=== PATIENT | female | born 1980 | race Caucasian/White ===

== ENCOUNTER 2025-06-19 11:05 | Outpatient (CLI) | payer OTHER, SELFPAY ==
--- OUTSIDE RECORDS SUMMARY | 2025-06-19 10:30 | XMS_ITS | Encounter Summary ---
Author Organization [facility] Address [address] [place] [address] Care Team Providers Care Erp Implementation Consultant Name Role Phone Unavailable Primary Care Provider Unavailabl e Reason for Referral * Eval and Treat (Routine) - Open Specialty Diagnoses / Procedures Referred By Contac t Referred To Contact Oncology Diagnoses Malignant neoplasm of central portion of right breast in female, estrogen receptor negative (CMS/HCC) Procedures SC OFFICE/OUTPATIENT ESTABLISHED MOD MDM 30 MIN SC OFFICE/OUTPATIENT NEW MODERATE MDM 45 MINUTES Favian Barriga MD [address] [facility] [address] [place] [phone] Phone: tel: fax: Referral ID Status Reason Start Date Expiration Date Visits Re quested Visits Authorized [id number] Open 06/19/2025 06/20/2026 1 1 * PET Scan (Routine) - Closed Specialty Diagnoses / Procedures Referred By Contac t Referred To Contact Diagnoses Malignant neoplasm of central portion of right breast in female, estrogen receptor negative (CMS/HCC) Procedures PET TUMOR OR INFECTION IMG W CT SKB Favian Mcleod MD [address] [facility] [address] [place] [phone] Phone: tel: fax: [place] [phone] Referral ID Status Reason Start Date Expiration Date V isits Requested Visits Authorized [id number] Closed STL CTS 06/19/2025 07/20/2026 1 1 Encounter Details Date Type Department Care Team (Late st Contact Info) Description 06/19/2025 10:30 AM CDT Office Visit [facility] Oncology and Hematology - [place] [address] [place] [address] Favian Barriga MD [address] [facility] [address] [place] [address] Malignant neoplasm of central portion of right breast in female, estrogen receptor negative (CMS/HCC) (Primary Dx); Neuropathy due to chemotherapeutic drug Social History Tobacco Use Types Packs/Day Years Used Date Smoking Tobacco: Never Tobacco Cessation:Counseling Given: Not Answered Alcohol Use Standard Drinks/Week Comments Not Currently 0 (1 standard drink = 0.6 oz pur e alcohol) very rarely. Feeling Safe Answer Date Recorded Within the last year, have y ou been afraid of your partner or ex-partner? No 12/12/2024 Emotionally Abused Not on file 12/12/2024 Within the last year, have y ou been kicked, hit, slapped, or otherwise physically hurt by your partner or ex-partner? No 12/12/2024 Sexually Abused Not on file 12/12/2024 Feeling Safe Answer Date Recorded Are you in a relationship wi th someone who hurts you emotionally and/or physically? 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 Gender Identity Not on file Sexual Orientation Not on file documented as of this encounter Last Filed Vital Signs Vital Sign Reading Time Taken Comments Blood Pressure 131/77 06/19/2025 10:01 AM CDT Pulse 68 06/19/2025 10:01 AM CDT Temperature 36.3 C (97.3 F) 06/19/2025 10:01 AM CDT Respiratory Rate 15 06/19/2025 10:01 AM CDT Oxygen Saturation 97% 06/19/2025 10:01 AM CDT Inhaled Oxygen Concentration - - Weight 112.5 kg (248 lb) 06/19/2025 10:01 AM CDT Height 147.3 cm (4' 10) 06/19/2025 10:01 AM CDT Body Mass Index 51.83 06/19/2025 10:01 AM CDT documented in this encounter Plan of Treatment Upcoming Encounters Date Type Department Care Team (Late st Contact Info) Description 07/22/2025 11:30 AM CDT Appointment [facility] Radiation Therapy [address] [place] [address] Sung Aguilar MD [address] 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 STOCK CAR DRIVER Office Visit [facility] Breast Surgery Girish Zavaleta [address] [facility] [address] [place] [address] [place] [address] [facility] [address] [place] [address] Pending Results Name Type Priority Associated Diagnoses Date /Time TEMPUS XT DNA AND RNA Lab Routine Malignant neoplasm of central portion of right breast in female, estrogen receptor negative (CMS/HCC) 06/19/2025 10:38 AM CDT TEMPUS XT NORMAL BLOOD Lab Routine Malignant neoplasm of central portion of right breast in female, estrogen receptor negative (CMS/HCC) 06/19/2025 10:38 AM CDT Scheduled Orders Name Type Priority Associated Diagnoses Orde r Schedule CBC WITH DIFFERENTIAL Lab Stat Malignant neoplasm of central portion of right breast in female, estrogen receptor negative (CMS/HCC) Expected: 06/19/2025, Expires: 06/19/2026 COMPREHENSIVE METABOLIC PANEL Lab Stat Malignant neoplasm of central portion of right breast in female, estrogen receptor negative (CMS/HCC) Expected: 06/19/2025, Expires: 06/19/2026 CANCER ANTIGEN 15-3 Lab Routine Malignant neoplasm of central portion of right breast in female, estrogen receptor negative (CMS/HCC) Expected: 06/19/2025, Expires: 06/19/2026 MISCELLANEOUS LAB TEST Lab Routine Malignant neoplasm of central portion of right breast in female, estrogen receptor negative (CMS/HCC) Expected: 06/19/2025, Expires: 06/19/2026 TEMPUS XT DNA AND RNA Lab Routine Malignant neoplasm of central portion of right breast in female, estrogen receptor negative (CMS/HCC) Expected: 06/19/2025, Expires: 06/19/2026 TEMPUS XF Lab Routine Malignant neoplasm of central portion of right breast in female, estrogen receptor negative (CMS/HCC) Expected: 06/19/2025, Expires: 06/19/2026 TEMPUS XT DNA AND RNA SOLID TUMOR Lab Routine Malignant neoplasm of central portion of right breast in female, estrogen receptor negative (CMS/HCC) Ordered: 06/19/2025 PET TUMOR OR INFECTION IMG W CT SKB [facility] Imaging Routine Malignant neoplasm of central portion of right breast in female, estrogen receptor negative (CMS/HCC) Expected: 06/19/2025, Expires: 06/19/2026 Scheduled Referrals Name Type Priority Associated Diagnoses Orde r Schedule AMB REFERRAL TO CHEMO TEACHING Outpatient Referral Routine Malignant neoplasm of central portion of right breast in female, estrogen receptor negative (CMS/HCC) Ordered: 06/19/2025 documented as of this encounter Visit Diagnoses Diagnosis Malignant neoplasm of central portion of right breast in female, estrogen receptor negative (CMS/HCC)- Primary Neuropathy due to chemotherapeutic drug Polyneuropathy due to drugs documented in this encounter
[2025-06-19 11:20] LABS: Hematocrit 34.1 % (37.0-47.0); Hemoglobin 11.1 g/dL (12.0-15.0); Immature Granulocyte Percent A 0.3 % (0-0.5); Lymphocytes Absolute Auto 1.68 K/mm3 (0.9-3.2); Mean Corpuscular HGB Conc 32.6 g/dl (32-36); Mean Corpuscular Hemoglobin 30.1 pg (26-34); Mean Corpuscular Volume 92.4 fl (80-100); Nucleated Red Blood Cells Absolute Auto 0.000 K/mm3 (0.0-0.012); Nucleated Red Blood Cells Perc 0.0 % (0.0-0.2); Platelet Count Result 302 k/mm3 (150-375); Red Blood Count 3.69 M/mm3 (4.2-5.4); White Blood Count 7.2 K/mm3 (4.5-10.0)
--- OUTSIDE RECORDS SUMMARY | 2025-06-19 11:50 | XMS_ITS | Encounter Summary ---
Author Organization [facility] Address [address] [place] [address] Care Team Providers Care Storage Engineer Name Role Phone Unavailable Primary Care Provider Unavailabl e Reason for Visit * Reason Onset Date Comments Medication Refill 06/12/2025 Encounter Details Date Type Department Care Team (Late st Contact Info) Description 06/12/2025 Refill [facility]3] Neurosurgery - Medical [place] [address] [facility] [address] [place] [address] Adams Shaw PA [address] [facility] [address] [place] [address] Hypertension, unspecified type Social History Tobacco Use Types Packs/Day Years Used Date Smoking Tobacco: Never Alcohol Use Standard Drinks/Week Comments Not Currently [...] on file 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 [facility] [address] [place] [address] 12/18/2025 9:30 AM WIRE HARNESS ASSEMBLER Office Visit [facility] Breast Surgery Girsih Zavaleta [address] [facility] [address] [place] [address] [place] [address] [facility] [address] [place] [address] documented as of this encounter Visit Diagnoses Diagnosis Hypertension, unspecified type documented in this encounter
--- OUTSIDE RECORDS SUMMARY | 2025-06-19 11:50 | XMS_ITS | Encounter Summary ---
Author Organization [facility] Address 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 [facility] [address] [place] [address] 12/18/2025 9:30 AM SLEEPING BAG FILLER Office Visit [facility] Breast Surgery Girish Zavaleta [address] [facility] [address] [place] [address] [place] [address] [facility] [address] [place] [address] documented as of this encounter Visit Diagnoses Diagnosis Hypertension, unspecified type documented in this encounter
--- OUTSIDE RECORDS SUMMARY | 2025-06-19 11:52 | XMS_ITS | Encounter Summary ---
Author Organization [facility] Address [address] [place] [address] Care Team Providers Care Conventional Underwriter Name Role Phone Marlien Rojas [facility] Primary Care Provider [phone] [facility] Un[facility] Pau Abdalla DO Unavailable + Encounter Details Date Type Department Care Team (Late st Contact Info) Description 07/15/2020 Abstract [facility] [address] [place], [place] [id number] Marline Rojas [facility] [address] [place], [place] [id number] Social History Tobacco Use Types Packs/Day Years Used Date Smoking Tobacco: Never Smokeless Tobacco: Never Alcohol Use Standard Drinks/Week Comments No 0 (1 standard drink = 0.6 oz pur e alcohol) AUDIT-C Answer Date Recorded Frequency of Alcohol Consumption Never 10/11/2018 Average Number of Drinks Not on file 018 Frequency of Binge Drinking Not on file 09/29 Comments No Sex and Gender Information Value Date Recorded Sex Assigned at Female 02/27/2025 6:06 PM CDT Legal Sex Female 6:01 PM CDT Gender Identity Female 02/27/2025 6:06 PM CDT Sexual Orientation Not on file COVID-19 Exposure Response Date Recorded In the last month, have you been in contact with someone who was confirmed or suspected to have Coronavirus / COVID-19? No / Unsure 06/26/2020 9:48 AM CDT documented as of this encounter Plan of Treatment Not on file documented as of this encounter Procedures Procedure Name Priority Date/Time Associated Diagnosis Comments HEALTH FAIR WITH LIPID Routine 12/25/2019 documented in this encounter Results * (ABNORMAL) HEALTH FAIR WITH LIPID (12/25/2019) WBC 7.9 RBC 4.2 HGB 10.6(A) 12.0 - 16.0 HCT 34.9(A) 36.0 - 46.0 MCV 83.1 MCH 25.2(A) 26.0 - 34.0 MCHC 30.4(A) 31.0 - 37.0 RDW 15.4(A) 11.6 - 14.8 PLT 343 GLUCOSE 102(A) 70 - 99 mg/dL SODIUM S/P/B 142 POTASSIUM S/P/B 4.2 CHLORIDE S/P/B 105 CO2 28 BUN 17 CREATININE S/P/B 0.8 0.5 - 1.0 TOTAL PROTEIN S/P/B 7.1 CALCIUM S/P/B 8.5 ALBUMIN S/P/B 3.3(A) 3.5 - 5.0 ALKALINE PHOSPHATASE S/P/B 129 AST 27 ALT 38 TSH 7.219(A) 0.358 - 3.740 CHOLESTEROL 171 TRIGLYCERIDES 93 HDL 49(A) 0 - 40 LDL (CALCULATED) 103 CHOL/HDL RISK FACTOR 3 12/25/2019 us Doc [facility] Abstract LABORATORY Final Result documented in this encounter Visit Diagnoses Not on filedocumented in this encounter Additional Health Concerns Infection Onset Date Last Indicated Resolved Time COVID-19 Rule Out 06/11/2021 06/11/2021 06/12/2021 3:47 AM CDT COVID-19 Rule Out 07/08/2022 07/08/2022 07/12/2022 9:05 AM CDT documented as of this encounter Care Teams Conventional Underwriter Relationship Specialty Start Date End Date Marline Rojas FNP [address] [place] [address] [place] [address] PCP - General FAMILY PRACTICE 09/15/18 [place] [address] [address] [facility] [address] [place] [address] SURGICAL ONCOLOGY 07/07/24 Pau Abdalla DO [address] [place] [address] INTERNAL MEDICINE 07/07/24 documented as of this encounter
--- OUTSIDE RECORDS SUMMARY | 2025-06-19 11:52 | XMS_ITS ---
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 03/15/2025 Malignant neoplasm of right breast, stage 2 06/2025 Normocytic anemia 03/07/2025 Palliative care encounter 03/06/2025 Neoplastic malignant related fatigue 03/06/2025 Nausea 03/06/2025 Frontal headache 03/06/2025 Drug-induced constipation 03/06/2025 Grief reaction 03/06/2025 Steroid-induced hyperglycemia 03/06/2025 Vasogenic brain edema 03/05/2025 Right frontal lobe mass 03/05/2025 DM (diabetes mellitus), type 2 03/05/2025 Iron deficiency anemia 01/17/2024 Malignant neoplasm of centra l portion of right breast in female, estrogen receptor negative 12/29/2023 Cancer Staging:Clinical:Stage IIB(cT2, cN0, cM0, G3, ER-, AZ-, HER2-) - Signed by Pau Abdalla DO on 01/04/2024 Overview (12/12/2024): Stage: Clinical T2N0; [id number] Date of diagnosis: 12/22/2022 Diagnosis: RIGHT IDC, grade 3 ER(-) AZ(-) Her 2(-) Post chemo: no residual cancer, 0/3 LN Surgeon: [facility] Surgery: 07/24/2024 right TM/SLN, left TM Medical Oncologist: Hugo --> [facility] Chemotherapy: neoadjuvant Severe hypersensitivity reaction to C1D1 of paclitaxel. Abraxane substituted for paclitaxel going forward. 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 COVID-19 vaccine dose declined 10/08/2021 PCOS (polycystic ovarian syndrome) 10/08/2021 Hypertension 10/11/2018 AMA (advanced maternal age) multigravida 35+ Maternal chronic hypertension 2016 Obesity affecting in third trimester 0 2016 Encounter for other specified screenin g 09/16/2016 Vitamin D deficiency 07/09/2015 Overview (12/07/2023): Date Onset: 07/09/2015 Family history of ovarian cancer 06/12/2015 Overview (12/07/2023): Date Onset: 06/12/2015 Metabolic syndrome 07/25/2014 Overview (12/07/2023): Date Onset: 07/25/2014 Hypothyroidism 05/10/2013 Obesity 05/10/2013 Overview (12/07/2023): Date Onset: 11/09/2012 Current Treatment and Therapy Plans No current plan information found. Past Treatment and Therapy Plans ONCOLOGY THERAPY PLAN Plan Name Start Date Discontinue Date Treatment Medications Discontinue Reason Plan Provider OP ONC IRON SUCROSE (VENOFER) 300 MG IVPB 2 TIMES PER WEEK X 3 DOSES 01/19/2024 06/26/2024 No medications scheduled. Therapy Complete Pau Laughlin, ONCOLOGY TREATMENT Plan Name Start Date Discontinue Date Treatment Medications Discontinue Reason Plan Provider Cycles OP ONC BREAST_ADJUVA NT_PEMBROLIZU MAB_EVERY 21 DAYS 024 02/13/2025 pembrolizumab (KEYTRUDA) Therapy Complete Pau Galan, 9 of 9 cycles started OP ONC BREAST_PEMBRO LIZUMAB DAY 1_protein bound PACLITAXEL AND CARBOPLATIN WEEKLY_EVERY 21 DAYS X 4 CYCLES FOLLOWED BY PEMBROLIZUMAB _AC_EVERY 21 DAYS X 4 CYCLES 01/11/20 24 08/07/2024 CARBOplatin (PARAPLATIN) IVPBcycloPHOSphamide (200 mg/mL) IVPBDOXOrubicin (ADRIAMYCIN)PACLitaxel (TAXOL) IVPBPACLitaxel-protein bound (ABRAXANE) IVPBpembrolizumab (KEYTRUDA) Therapy Complete Pau Galan, 8 of 8 cycles started Lifetime Dose Tracking * Chemical Lifetime Dose Automatic Entry Manual Entr y doxorubicin 248.285 mg/m2 (520 mg) 248.285 mg/m2 (520 mg) 0 mg/m2 (0 mg) Effective Dose 25.99 mSv 25.99 mSv 0 mSv Total DLP 2,293.58 DLP 2,293.58 DLP 0 DLP CTDIvol Max 33.23 mGy 33.23 mGy 0 mGy
--- OUTSIDE RECORDS SUMMARY | 2025-06-19 11:52 | XMS_ITS | Clinical Summary ---
Author Organization [facility] [place] Address [address] [place] [address] Phone Care Team Providers Care Cook Soup Name Role Phone Unavailable Primary Care Provider Unavailabl e Allergies Active Allergy Reactions Criticality Noted Date Comments Paclitaxel Other (See Comments) High 01/12/2024 Severe hypersensitivity reaction with first infusion. Do not rechallenge. Medications metFORMIN (GLUCOPHAGE) 500 mg tablet Take 500 mg by mouth. Active levETIRAcetam (KEPPRA) 1,000 mg tablet Take 1 Tablet (1,000 mg) by mouth 2 times daily. 60 Tablet 6 03/27/20 25 2025 Active amLODIPine (NORVASC) 5 mg tabletIndications:H ypertension, unspecified type TAKE 1 TABLET BY MOUTH EVERY DAY 30 Tablet 05/08/20 25 Active levothyroxine 100 mcg tabletIndications:H ypothyroidism, unspecified type TAKE 1 TABLET (100 MCG) BY MOUTH DAILY IN THE MORNING 90 Tablet 1 05/21/20 25 Active gabapentin (NEURONTIN) 300 mg capsuleIndications: Neuropathy due to chemotherapeutic drug Take 1 Capsule (300 mg) by mouth daily at bedtime. 30 Capsule 3 06/19/20 25 Active DULoxetine (CYMBALTA) 60 mg Capsule, Delayed Release(E.C.)Indica tions:Neuropathy due to chemotherapeutic drug Take 1 Capsule (60 mg) by mouth daily. 90 Capsule 1 06/19/20 25 Active DULoxetine (CYMBALTA) 60 mg Capsule, Delayed Release(E.C.)Indica tions:Neuropathy due to chemotherapeutic drug TAKE 1 CAPSULE BY MOUTH EVERY DAY 90 Capsule 1 11/29/19 25 2024 Discontinued(R eorder) gabapentin (NEURONTIN) 300 mg capsuleIndications: Neuropathy due to chemotherapeutic drug TAKE 1 CAPSULE (300 MG) BY MOUTH DAILY AT BEDTIME 30 Capsule 3 02/13/20 25 2024 Discontinued(R eorder) levothyroxine 100 mcg tabletIndications:H ypothyroidism, unspecified type Take 1 Tablet (100 mcg) by mouth daily in the morning. 30 Tablet 4 02/19/20 25 2024 Discontinued Active Problems Problem Noted Date Diagnosed Date [...] Cancer Staging:Clinical:Stage IIB(cT2, cN0, cM0, G3, ER-, LA-, HER2-) - Signed by Pau Abdalla DO on 01/04/2024 Overview (12/12/2024): Stage: Clinical T2N0; [id number] Date of diagnosis: 12/22/2022 Diagnosis: RIGHT IDC, grade 3 ER(-) LA(-) Her 2(-) Post chemo: no residual cancer, 0/3 LN Surgeon: Bhumi Surgery: 07/24/2024 right TM/SLN, left TM Medical [...] Obesity 05/10/2013 Overview (12/07/2023): Date Onset: 11/09/2012 Encounters Date Type Department Care Team Description 06/19/2025 10:30 AM CDT Office Visit [facility] Oncology and Hematology [facility] [address] [place] [phone] Favian Barriga MD Malignant neoplasm of central portion of right breast in female, estrogen receptor negative (CMS/HCC) (Primary Dx); Neuropathy due to chemotherapeutic drug 06/12/2025 [facility] Neurosurgery Medical [place] [address] [facility] [address] [place] [address] Adams Shaw PA Hypertension, unspecified type 06/10/2025 [facility] [address] [facility] [address] [place] [address] Mandy Echols PA-C Hypertension, unspecified type 06/06/2025 [facility] - [facility] [address] [place] [address] Pau Abdalla, DO Neuropathy due to chemotherapeutic drug 06/06/2025 [facility] [address] [facility] [address] [place] [address] Marge Guzman, LAW Neuropathy due to chemotherapeutic drug 06/04/2025 External Device Data STL ABSTRACTION Provider, Abstract 06/01/2025 [facility] [address] [facility] [address] [place] [address] Mandy Echols PA-C Hypertension, unspecified type 05/21/2025 [facility] ONCOLOGY AND [facility]EMATOLOGY-[facility] [address] [place] [address] Marge Guzman, PRODUCTION CONTROL ANALYST Hypothyroidism, unspecified type 05/20/2025 External Device Data STL ABSTRACTION Provider, Abstract 05/20/2025 External Device Data STL ABSTRACTION Provider, Abstract 05/07/2025 [facility] [address] [facility] [address] [place] [address] Adams Shaw PA Hypertension, unspecified type 04/26/2025 9:58 AM CDT - 04/26/2025 11:59 PM CDT Hospital [facility] MRI [address] [place] [address] Erica Kamara PA Discharge Disposition: Home or Self Care 04/16/2025 11:30 AM CDT Office Visit [facility] [address] [facility] [address] [place] [address] Norris Marcus MD Postoperative follow-up (Primary Dx); S/P craniotomy 04/16/2025 External Device Data STL ABSTRACTION Provider, Abstract 04/15/2025 External Device Data STL ABSTRACTION Provider, Abstract 04/15/2025 External Device Data STL ABSTRACTION Provider, Abstract 04/14/2025 12:15 PM CDT - 04/14/2025 11:59 PM CDT Hospital Encounter [facility] Radiation Therapy [address] [place] [address] Sung Aguilar MD Discharge Disposition: Home or Self Care 04/14/2025 Refill [facility] [address] [facility] [address] [place] [address] Moni Lopez PA-C Hypertension, unspecified type 04/11/2025 8:40 AM CDT - 04/11/2025 11:59 PM CDT Hospital Encounter [facility] Radiation Therapy [address] [place] [address] Sung Aguilar MD Discharge Disposition: Home or Self Care 04/09/2025 8:00 AM CDT - 04/09/2025 11:59 PM CDT Hospital Encounter [facility] Radiation Therapy [address] [place] [address] Sung Aguilar MD Discharge Disposition: Home or Self Care 04/07/2025 9:33 AM CDT - 04/07/2025 11:59 PM CDT Hospital Encounter [facility] Radiation Therapy [address] [place] [address] Sung Aguilar MD Discharge Disposition: Home or Self Care 04/03/2025 8:07 AM CDT - 04/03/2025 11:59 PM CDT Hospital Encounter [facility] Radiation Therapy [address] [place] [address] Sung Aguilar MD Discharge Disposition: Home or Self Care 04/02/2025 6:00 AM CDT - 04/02/2025 11:59 PM CDT Hospital Encounter [facility] Radiation Therapy [address] [place] [address] Discharge Disposition: Home or Self Care 04/02/2025 Orders Only [facility] Radiation Therapy [address] [place] [address] Sung Aguilar MD 03/27/2025 9:16 AM CDT - 03/27/2025 11:59 PM CDT Hospital Encounter [facility] MRI [address] [place] [address] Sung Aguilar MD Discharge Disposition: Home or Self Care 03/27/2025 8:45 AM CDT - 03/27/2025 11:59 PM CDT Hospital Encounter [facility] Radiation Therapy [address] [place] [address] Sung Aguilar MD Discharge Disposition: Home or Self Care 03/27/2025 8:15 AM CDT Office Visit [facility] Neurosurgery - [facility] [address] [facility] [address] [place] [address] Erica Kamara PA Postoperative visit (Primary Dx); S/P craniotomy; Metastatic cancer to brain (CMS/HCC) 03/20/2025 External Device Data STL ABSTRACTION Provider, Abstract 03/20/2025 External Device Data STL ABSTRACTION Provider, Abstract 03/20/2025 External Device Data STL ABSTRACTION Provider, Abstract 03/19/2025 External Device Data STL ABSTRACTION Provider, Abstract 03/19/2025 External Device Data STL ABSTRACTION Provider, Abstract from Last 3 Months Immunizations Immunization Administration Dates Next Due (ADACEL/BOOSTRIX)(10 YR UP) TDAP VACCINE, 0.5ML, IM 12/03/2016 DTaP, Unspecified Formulation 11/30/2016 Family History Medical History Relation Name Comments Lung Cancer Maternal Aunt Roesann High Cholesterol Maternal Grandfather [place] Hypertension Maternal Grandfather [place] Stroke Maternal Grandfather [place] Hypertension Maternal Grandmother Ovarian Cancer Mother Beulah possibly, not sure. High Cholesterol Paternal Grandfather Don Hypertension Paternal Grandfather Don Stroke Paternal Grandfather Don Hypertension Paternal Grandmother Relation Name Status Comments Maternal Aunt Roseann Maternal Grandfather [place] Maternal Grandmother Mother Beulah Paternal Grandfather Don Paternal Grandmother Social History Tobacco Use Types Packs/Day Years [...] on file Legal Sex Female 8:46 AM SUPERVISOR BAKING Gender Identity Not on file Sexual Orientation Not on file Last Filed Vital Signs Vital Sign Reading [...] Mass Index 51.83 06/19/2025 10:01 AM CDT Plan of Treatment Upcoming Encounters Date Type Department Care Team (Late st Contact Info) Description 07/22/2025 11:30 AM CDT Appointment [facility] Radiation Therapy [address] [place] [phone] Sung Aguilar MD [address] [facility] [address] [place] [address] 12/18/2025 9:30 AM SUPERVISOR BAKING Office Visit [facility] Breast Surgery Girish Zavaleta [address] [place] [address] [place] [address] [facility] [address] [place] [address] Health Maintenance Due Date Last Done Comments DIABETES ANNUAL FOOT EXAM 1997 DIABETES ANNUAL RETINAL EXAM 1997 DIABETES MICROALBUMIN ANNUAL SCREEN 1997 LDL CHOLESTEROL ANNUAL 1997 HEPATITIS B VACCINES (1 of 3 - 19+ 3-dose series) 1998 HPV/Cotest (21-29) 2000 HPV VACCINES (1 - Risk 3-dos e SCDM series) 2006 CERVICAL CANCER SCREENING 2009 HPV/Cotest (30-65) 2009 PAP SMEAR 2009 FIT-DNA Q 3 years 2024 FIT/FOBT Q 1 year 2024 Flex Sig/CT Colonography Q 5 years 2024 INFLUENZA VACCINE (#1) 2025 DIABETES HBA1C Q 6 MONTHS 09/06/20252024, 02/27/2025, 10/18/2023 DTAP/TDAP/TD VACCINES (2 - T d or Tdap) 12/03/2026 12/03/2016, 11/30/2016 COLORECTAL SCREENING 06/14/2031 06/14/2021 Colorectal Cancer Screening 06/14/2031 Medical Devices Implanted Type Area Certified Histologic Technician Device Identifier Shelf Expiration Date Model / Serial / Lot Gymnasium Teacher Clip Surgiclip Ii Parag 9.75in [id number] - [id number] Implanted:Qty: 1 on 07/24/2024 by Jacqueline Tripathi MD at [facility] Clip N/A: Breast [employer] - COVIDIEN [id number] 02/26/2029 [id number] / / [id number] Hemostatic Surgifoam Sz100 1973 - [id number] Implanted:Qty: 1 on 03/14/2025 by Norris Marcus MD at [facility] Hemostatic Right: Brain [employer]- [employer] [id number] 01/07/20291973 / / [id number] Hemostatic Surgifoam Sz100 1973 - [id number] Implanted:Qty: 1 on 03/14/2025 by Norris Marcus MD at [facility] Hemostatic Right: Brain [employer]- [employer] [id number] 01/22/20291973 / / [id number] Hemostatic Surgicel 6x9in 1945 - [id number] Implanted:Qty: 1 on 03/14/2025 by Norris Marcus MD at [facility] Hemostatic Right: Brain [employer]- [employer] [id number] 05/29/20291945 / / [id number] Plate Matrxneuro Bur Hl Cvr .502.023 - [id number] Implanted:Qty: 3 on 03/14/2025 by Norris Marcus MD at [facility] Plate Right: Brain [employer]- DEPUY SYNTHES 04.502.02 3 / Description:REQ [id number] Port-01/11/2024 Implanted:Qty: 1 on 01/11/2024 by Shan Tinsley MD Port Left: Chest Wall [id number] 06/29/2025 [id number] / / [id number] Screw Matrixneuro Sd 04.503.104.01 - [id number] Implanted:Qty: 10 on 03/14/2025 by Norris Marcus MD at [facility] Screw Right: Brain [employer]- [employer] SYNTHES .503.10 4. / / Procedures Procedure Name Priority Date/Time Associated Diagnosis Comments MRI BRAIN W WO CONTRAST Routine 04/26/2025 11:47 AM CDT Postoperative visit S/P craniotomy Metastatic cancer to brain (CMS/HCC) MRI THERAPY PLANNING BRAIN W CONTRAST Routine 03/27/2025 10:52 AM CDT Metastasis to brain (CMS/HCC) TELEMETRY REPORT 03/19/2025 9:38 AM CDT HEMOGLOBIN A1C Routine 03/06/2025 5:54 AM CDT from Last 3 Months or Most Recently Relevant to Health Maintenance Results * MRI BRAIN W WO CONTRAST (04/26/2025 11:47 AM CDT) Anatomical Region Laterality Modality Head Magnetic Resonan ce 04/26/2025 11:4 7 AM CDT Impressions 04/26/2025 5:37 PM CDT IMPRESSION: Continued decrease in size of resection cavity with less hemorrhage and enhancement compared to prior exam. Continued follow-up recommended. DICTATION LOCATION: Location 4 Narrative 04/26/2025 5:37 PM CDT MR IMAGING OF BRAIN WITH AND WITHOUT IV CONTRAST, 04/26/2025 HISTORY: Brain metastases. IV CONTRAST: 20 cc ProHance. FINDINGS: Today's study is compared to 03/27/2025 MR brain which is first postoperative study. Patient is again noted to be status post right frontal craniotomy for resection of brain mass located in right superior frontal gyrus and middle frontal gyrus. Resection cavity currently measures 4.3 x 2.6 cm in transverse dimension and in vertical dimension it measures about 3.3 cm. It has decreased in size since prior study where transverse dimensions were 3.5 cm x 4.5 cm. On the current examination there is some enhancement over the cortical surface of the brain and there is some enhancement of the resection cavity. In the posterior aspect of the resection cavity there is a T1 bright area measuring about 5.4 mm. This may be some dependent clot as it is not necessarily completely attached to the wall of the resection cavity. It is seen on precontrast images. Overall mass effect has decreased since prior scan. No overt nodular enhancement is seen on the current study otherwise. No new lesions are seen elsewhere. Procedure Note Sebastian Roberto MD - 04/26/2025 MR IMAGING OF BRAIN WITH AND WITHOUT IV CONTRAST, 04/26/2025 HISTORY: Brain metastases. IV CONTRAST: 20 cc ProHance. FINDINGS: Today's study is compared to 03/27/2025 MR brain which is first postoperative study. Patient is again noted to be status post right frontal craniotomy for resection of brain mass located in right superior frontal gyrus and middle frontal gyrus. Resection cavity currently measures 4.3 x 2.6 cm in transverse dimension and in vertical dimension it measures about 3.3 cm. It has decreased in size since prior study where transverse dimensions were 3.5 cm x 4.5 cm. On the current examination there is some enhancement over the cortical surface of the brain and there is some enhancement of the resection cavity. In the posterior aspect of the resection cavity there is a T1 bright area measuring about 5.4 mm. This may be some dependent clot as it is not necessarily completely attached to the wall of the resection cavity. It is seen on precontrast images. Overall mass effect has decreased since prior scan. No overt nodular enhancement is seen on the current study otherwise. No new lesions are seen elsewhere. IMPRESSION: Continued decrease in size of resection cavity with less hemorrhage and enhancement compared to prior exam. Continued follow-up recommended. DICTATION LOCATION: Location 4 us Erica LALA MR ORDERABLES Final Result * MRI THERAPY PLANNING BRAIN W CONTRAST (03/27/2025 10:52 AM CDT) Anatomical Region Laterality Modality Head Magnetic Resonan ce 03/27/2025 10:5 3 AM CDT Impressions 03/27/2025 12:33 PM CDT IMPRESSION: 1. Examination performed for treatment planning. 2. Postoperative changes related to right frontal craniotomy and tumor resection. DICTATION LOCATION: Location 1 - [facility] Narrative 03/27/2025 12:33 PM CDT EXAMINATION: MAGNETIC RESONANCE IMAGING (MRI) THERAPY PLANNING WITH CONTRAST DATE: 03/27/2025 10:52 AM HISTORY: Brain metastasis. TECHNIQUE: Postcontrast MRI of the brain was performed performed according to radiation therapy planning protocol. CONTRAST INFORMATION: 20 mL ProHance. COMPARISON: 03/15/2025. FINDINGS: Fiducial marker noted on the right frontal scalp. Recent right frontal craniotomy. Right frontal lobe resection cavity exhibits heterogeneous internal signal. Adjacent parenchymal edema noted. No evidence of an additional enhancing intracranial lesion. Partial effacement of the right lateral ventricle noted. No significant change in leftward midline shift. Normal appearance of the intracranial vasculature. Procedure Note Diallo Hector MD - 03/27/2025 EXAMINATION: MAGNETIC RESONANCE IMAGING (MRI) THERAPY PLANNING WITH CONTRAST DATE: 03/27/2025 10:52 AM HISTORY: Brain metastasis. TECHNIQUE: Postcontrast MRI of the brain was performed performed according to radiation therapy planning protocol. CONTRAST INFORMATION: 20 mL ProHance. COMPARISON: 03/15/2025. FINDINGS: Fiducial marker noted on the right frontal scalp. Recent right frontal craniotomy. Right frontal lobe resection cavity exhibits heterogeneous internal signal. Adjacent parenchymal edema noted. No evidence of an additional enhancing intracranial lesion. Partial effacement of the right lateral ventricle noted. No significant change in leftward midline shift. Normal appearance of the intracranial vasculature. IMPRESSION: 1. Examination performed for treatment planning. 2. Postoperative changes related to right frontal craniotomy and tumor resection. DICTATION LOCATION: Location 1 - [facility] Sung Aguilar MD MR ORDERABLES Final Result * TELEMETRY REPORT (03/19/2025 9:38 AM CDT) Provider Scanning ECG ORDERABLES Final Result * HEMOGLOBIN A1C (03/06/2025 5:54 AM CDT) HEMOGLOBIN A1C 5.2 <5.7 % 03/06/2025 7:53 AM CDT [facility] EST. AVG GLUCOSE, A1C 103 mg/dL 03/06/2025 7:53 AM CDT [facility] Blood Venipuncture / Unknown 03/06/2025 5:54 AM CDT 03/06/2025 6:08 AM CDT Narrative [facility] - 03/06/2025 7:53 AM CDT HGB A1C INTERPRETATION NORMAL: <5.7% PRE-DIABETES: 5.7 - 6.4% DIABETES: 6.5% OR GREATER Karlos Ford MD CHEMISTRY ORDERABLES Final Resu lt [facility] CLIA# [id number] [address] [place] [id number] from Last 3 Months or Most Recently Relevant to Health Maintenance Insurance [employer] CHOICE POS II [employer] CHOICE POS II Advance Directives For more information, please contact: [phone] * Full Code (Latest Code Status on File) Date Activated Date Inactivated Comments 03/14/2025 5:42 AM 03/17/2025 4:17 PM * Full Code Date Activated Date Inactivated Comments 03/05/2025 10:21 PM 03/07/2025 5:51 PM * Full Code Date Activated Date Inactivated Comments 07/24/2024 2:00 PM 07/25/2024 12:00 PM * Full Code Date Activated Date Inactivated Comments 07/24/2024 9:26 AM 07/24/2024 2:00 PM
--- OUTSIDE RECORDS SUMMARY | 2025-06-19 11:53 | XMS_ITS | Clinical Summary ---
Author Organization [facility] [place] Address [address] [place] [address] Care Team Providers Care Wharf Worker Name Role Phone Adriana Braxton MANUFACTURERS AGENT-RAILROAD CAR LOADER Primary Care Provider + Source Comments [facility] and Associated Physician Practices is amultiple site organization consisting of ambulatory clinics and hospital sitesin [place], [place], [place] and [place]. This disclosure is being madepursuant to the Care Everywhere program and may not contain all information available regarding this patient. Last updated 18.[facility] [place] Allergies Active Allergy Reactions Criticality Noted Date Comments Paclitaxel Anaphylaxis High 01/12/2024 Medications * Be aware that medications may not be up to date on this document. Alwaysverify current medications with the patient. Vit-Fe Fumarate-FA ( VITAMIN) 28-0.8 MG tablet Take 1 Tab by mouth once daily Active folic acid (FOLVITE) 1 MG tablet Take 1 mg by mouth once daily Active ferrous sulfate 325 (65 FE) MG tablet Take 325 mg by mouth 2 times daily with morning and evening meal Active metFORMIN (GLUCOPHAGE) 500 MG tablet Take 500 mg by mouth 2 times daily with morning and evening meal Active labetalol (NORMODYNE; TRANDATE) 100 MG tablet Take 100 mg by mouth 2 times daily Active levothyroxine (SYNTHROID) 150 MCG tablet Take 150 mcg by mouth daily before breakfast Active aspirin (ASPIRIN) 81 MG chew tablet Take 81 mg by mouth once daily Active Active Problems Problem Noted Date Diagnosed Date AMA (advanced maternal age) multigravida 35+ Chronic hypertension complic ating or reason for care during 2016 Obesity affecting in third trimester 0 2016 Encounter for ultrasound to check growth 1 12/18/2015 Encounter for anatomic survey 09/16/2016 Social History Tobacco Use Types Packs/Day Years Used Date Smoking Tobacco: Never Assessed AUDIT-C Answer Date Recorded Q1: How often do you have a drink containing alcohol? Never 01/12/2024 Q2: How many drinks containi ng alcohol do you have on a typical day when you are drinking? Patient does not drink Q3: How often do you have si x or more drinks on one occasion? Never 01/12/2024 Comments No Sex and Gender Information Value Date Recorded Sex Assigned at Not on file Legal Sex Female 7:39 AM CDT Gender Identity Not on file Sexual Orientation Not on file Last Filed Vital Signs Vital Sign Reading Time Taken Comments Blood Pressure 158/79 01/12/2024 7:55 PM CDT Pulse 79 01/12/2024 6:48 PM CDT Temperature - - Respiratory Rate 15 01/12/2024 6:48 PM CDT Oxygen Saturation 95% 01/12/2024 6:48 PM CDT Inhaled Oxygen Concentration - - Weight - - Height 147.3 cm (4' 10) 01/27/2017 8:49 AM CDT Body Mass Index - - Plan of Treatment Health Maintenance Due Date Last Done Comments COLOGUARD (AGES 45-75) - COLON CA SCREENING 1979 COLON MONITORING 1979 COLONOSCOPY - COLON CA SCREENING 1979 CT COLONOGRAPHY - COLON CA SCREENING 1979 Colorectal Cancer Screening 1979 FIT - COLON CA SCREENING 1979 FLEX SIG - COLON CA SCREENING 1979 HIV SCREENING 1994 HEPATITIS C SCREENING 12/16/1997 DTAP/TDAP/TD VACCINES (1 - Tdap) 1998 HEPATITIS B VACCINE (1 of 3 - 19+ 3-dose series) 1998 PAP SMEAR 2000 HPV VACCINE (1 - 3-dose SCDM series) 2006 COVID-19 VACCINE ( - season) 2024 DEPRESSION SCREENING 10/30/2024 INFLUENZA VACCINE (#1) 2025 MAMMOGRAM 12/22/2025 12/22/2023, 10/31, 11/23/2023, Additional history exists LIPID TESTING 10/18/2028 10/18/2023 ZOSTER VACCINE (1 of 2) 2029 HIB VACCINE Aged Out No longer eligi ble based on patient's age to complete this topic MENINGOCOCCAL (Group B) VACCINE SHARED DECISION-MAKING Aged Out No longer eligible based on patient's age to complete this topic MENINGOCOCCAL GROUPS A/C/Y/W VACCINE Aged Out No longer eligible based on patient's age to complete this topic PNEUMOCOCCAL VACCINE Aged Out No long er eligible based on patient's age to complete this topic Insurance [employer] Care Teams Wharf Worker Relationship Specialty Start Date End Date Adriana Braxton APRN-RAILROAD CAR LOADER [address] [place] [address] [place] [address] PCP - General Nurse Practitioner 07/20/16
[2025-06-19 16:47] LABS: Alanine Aminotransferase 44 U/L (6-35); Albumin Level 4.6 g/dL (3.5-5.1); Alkaline Phosphatase 146 U/L (38-126); Anion Gap 9 mmol/L (4-12); Aspartate Amino Transferase 67 U/L (14-36); Bilirubin,Total 0.3 mg/dL (0.2-1.3); Blood Urea Nitrogen 11 mg/dL (7-17); Calcium 9.6 mg/dL (8.4-10.2); Carbon Dioxide 27 mmol/L (22-30); Chloride 101 mmol/L (98-107); Estimated Glomerular Filt Rate > 60; Glucose 117 mg/dL (65-110); Potassium 4.4 mmol/L (3.4-5.0); Sodium 137 mmol/L (137-145); Total Protein 7.5 g/dL (6.3-8.2)
== END 2025-06-19 11:06 | disposition home or self-care (01) ==
PROVIDERS: Visit Provider Internal Medicine Hematology & Oncology
DX: C50.111 Malignant neoplasm of central portion of right female breast (principal); Z17.1 Estrogen receptor negative status [ER-]
CPT/HCPCS: 36415; 80053; 85025; 86300